=== PATIENT | female | born 1985 | race Caucasian/White ===

== ENCOUNTER 2016-10-25 09:36 | Emergency (ER) | payer OTHER ==
[~2016-10-25] VITALS: Ht 154.9 cm; Wt 55.8 kg
[~2016-10-25 09:36] MED LIST: AMOXICILLIN500 MG PO; ANTIBIOTIC; CLEOCIN150 MG PO; DARVOCET N 1001 TAB PO; DAYPRO600 M1 PO; EFFEXOR XR75 M1 PO; IRON325 M1; KLONOPIN0.5 MG PO; NAPROSYN500 MG PO; NORCO 325 MG-51 TAB PO; PARAFON FORTE500 MG PO; PAXIL10 MG PO; ROBAXIN750 MG PO; TYLENOL W/CODEI1 TA2 PO
[2016-10-25 10:08] LABS: BASO # 0.1 10*3/uL (0.0-0.1); BASO % 0.6 % (0.0-1.0); EOS # 0.2 10*3/uL (0.0-0.4); EOS % 1.7 % (1.0-4.0); HEMATOCRIT 36.5 % (37.0-47.0); HEMOGLOBIN 12.6 g/dl (12.0-16.0); LYMPH # 1.8 10*3/uL (1.3-4.4); LYMPH % 18.1 % (27.0-41.0); MEAN CELL VOLUME 96.1 fl (81.0-99.0); MEAN CORPUSCULAR HGB 33.2 pg (27.0-31.0); MEAN CORPUSCULAR HGB CONC 34.5 g/dl (33.0-37.0); MEAN PLATELET VOLUME 9.9 fl (9.6-12.3); MONO # 0.6 10*3/uL (0.1-1.0); MONO % 5.7 % (3.0-9.0); NEUT # 7.2 10*3/uL (2.3-7.9); NEUT % 73.6 % (47.0-73.0); PLATELET COUNT AUTOMATED 268 10*3/uL (130-400); RED CELL DISTRI WIDTH 12.2 % (0-14.5); WHITE BLOOD COUNT 9.8 10*3/uL (4.8-10.8)
[2016-10-25 10:23] LABS: ALBUMIN 3.7 gm/dl (3.1-4.5); ALKALINE PHOSPHATASE 55 U/L (45-117); BUN 7 mg/dl (7-24); CHLORIDE 106 mmol/L (98-107); CREATININE 0.47 mg/dL (0.55-1.02); POTASSIUM 4.1 mmol/L (3.5-5.1); SGOT/AST 9 IU/L (3-35); SGPT/ALT 15 U/L (12-78); SODIUM 139 mmol/L (136-145); TOTAL PROTEIN 6.5 gm/dL (6.4-8.2)
== END 2016-10-25 12:34 | disposition home or self-care (01) ==
LOC: ED 09:36
PROVIDERS: Physician Assistant
DX: R51 Headache (principal); R11.0 Nausea; H53.149 Visual discomfort, unspecified; F17.200 Nicotine dependence, unspecified, uncomplicated

== ENCOUNTER 2018-12-25 23:12 | Emergency (ER) | payer OTHER ==
[~2018-12-25] VITALS: Ht 154.9 cm; Wt 54.4 kg
[2018-12-26] MEDS ORDERED: ZITHROMAX250 MG PO (00:34)
[2018-12-26] MEDS ORDERED: PREDNISONE20 M1 PO (00:34)
== END 2018-12-26 01:34 | disposition home or self-care (01) ==
LOC: ED 23:12
DX: J40 Bronchitis, not specified as acute or chronic (principal); G43.909 Migraine, unspecified, not intractable, without status migrainosus; M54.9 Dorsalgia, unspecified; Z79.899 Other long term (current) drug therapy

== ENCOUNTER 2019-01-27 15:24 | Emergency (ER) | payer OTHER ==
[~2019-01-27] VITALS: Ht 154.9 cm; Wt 55.3 kg
[~2019-01-27 15:24] MED LIST changes: +PREDNISONE20 M1 PO; +ZITHROMAX250 MG PO
[2019-01-27] MEDS ORDERED: AMOXICILLIN500 M2 PO (17:02)
[2019-01-27] MEDS ORDERED: FLONASE ALLERG9.9 ML NAS (17:02)
[2019-01-27] MEDS ORDERED: ZYRTEC10 MG PO (17:02)
== END 2019-01-27 17:17 | disposition home or self-care (01) ==
LOC: ED 15:24
DX: J01.90 Acute sinusitis, unspecified (principal); G43.909 Migraine, unspecified, not intractable, without status migrainosus; Z79.899 Other long term (current) drug therapy; Z79.2 Long term (current) use of antibiotics